=== PATIENT | female | born 1990 | race Caucasian/White ===

== ENCOUNTER 2016-05-27 10:26 | Outpatient (CLI) | payer SELFPAY | END 2016-05-27 10:27 | disposition home or self-care (01) | LOC: LABLEX 10:26 | PROVIDERS: ATTEND Family Medicine | DX: M54.5 Low back pain (principal); B99.9 Unspecified infectious disease | CPT/HCPCS: 87086 ==

== ENCOUNTER → 2016-11-27 | Emergency (ER) | payer BC, SELFPAY | LOC: BURERS 17:46 | DX: M62.838 Other muscle spasm (principal); G44.209 Tension-type headache, unspecified, not intractable; F41.9 Anxiety disorder, unspecified; F31.9 Bipolar disorder, unspecified; Z79.899 Other long term (current) drug therapy | CPT/HCPCS: 99283 ==